=== PATIENT | male | born 1990 | race Two or more races ===

== ENCOUNTER 2021-01-11 14:19 | Emergency (ER) | payer SELFPAY ==
[~2021-01-11] VITALS: Ht 172.7 cm; Wt 105.0 kg
[2021-01-11 14:30] VITALS: BP 120/65
--- NOTE | 2021-01-11 14:40 | PHYS DOC ---
General Adult EDM: Chief Complaint: LACERATION/AVULSION HPI: HPI: Patient is a 30-year-old male who presents to the ER for a laceration to his left hand and forearm. Patient reports that he cut his hand on glass. Patient has a 3 cm laceration to the dorsal aspect of his hand and a wound to his left forearm. Patient denies any decreased sensation or decreased range of motion to extremity. Patient states that his tetanus shot is up-to-date. (HOLLIE FARLEY APRN) Review of Systems: Review of Systems: 14 body systems of the review of systems have been reviewed. See HPI for pertinent positive and negative responses, otherwise all other systems are negative, nonpertinent or noncontributory (HOLLIE FARLEY APRN) Physical Exam: PE: Constitutional: Well developed, well nourished, no acute distress, non-toxic appearance. [] HENT: Normocephalic, atraumatic Eyes: PERRL, EOMI, conjunctiva normal, no discharge. [] Neck: Normal range of motion, no stridor Cardiovascular: Normal peripheral perfusion Lungs & Thorax: Normal work of breathing, no tachypnea Abdomen: Bowel sounds normal, soft, no tenderness, no masses, no pulsatile masses. [] Skin: Warm, dry, no erythema, no rash, 3 cm L-shaped laceration of the dorsal aspect of patient's left hand, no tendon involvement, no visible foreign body. 4 cm wound noted to left forearm, no states that patient shaved off the layer of his skin, this wound is not suturable. Good range of motion and neuro intact to left hand. Back: Normal range of motion Extremities: No tenderness, no cyanosis, no clubbing, ROM intact, no edema. [] Neurologic: Alert and oriented X 3, normal motor function, normal sensory function, no focal deficits noted. [] Psychologic: Affect normal, judgement normal, mood normal. [] (HOLLIE FARLEY APRN) EKG: EKG: [] (HOLLIE FARLEY APRN) Radiology/Procedures: Radiology/Procedures: PROCEDURE: HAND LEFT 3V EXAM: Right hand, 3 views. HISTORY: Laceration. COMPARISON: None. FINDINGS: 3 views of the left hand are obtained. There is no fracture, dislocation or subluxation. There is no evidence foreign body. IMPRESSION: No acute osseous finding. Electronically signed by: Adelita Adamson MD (01/11/2021 3:05 PM) [id number] DICTATED AND SIGNED BY: ADELITA ADAMSON MD DATE: 01/11/21 1504 CC: EMERGENCY,DEPARTMENT; HOLLIE FARLEY APRN; PCP,NO ~MTH0 0[] (HOLLIE FARLEY APRN) Heart Score: C/O Chest Pain: No Risk Factors: Risk Factors: DM, Current or recent (<one month) smoker, HTN, HLP, family history of CAD, obesity. Risk Scores: Score 0 - 3: 2.5% MACE over next 6 weeks - Discharge Home Score 4 - 6: 20.3% MACE over next 6 weeks - Admit for Clinical Observation Score 7 - 10: 72.7% MACE over next 6 weeks - Early Invasive Strategies (HOLLIE FARLEY APRN) Course & Med Decision Making: Course & Med Decision Making Pertinent Labs and Imaging studies reviewed. (See chart for details) Patient is a 30-year-old male being seen for a laceration to his left hand and forearm. An x-ray was performed to rule out fracture or foreign body retainment. No tendon involvement. Full range of motion of the hand and fingers. This was negative for any acute findings.. Patient's wound cleansed with saline and chlorhexidine. Laceration to dorsal aspect of hand was repaired with sutures. Neuro intact pre and post suture placement. Patient's wound to his left forearm is not suturable as he shaved off a layer of skin. This wound was cleansed and a nonadherent dressing was placed. Patient given first dose of antibiotic in the ER and discharged home with a prescription for antibiotic. Patient given education regarding wound care and suture removal care. I discussed with patient all findings and diagnostic testing as well as the need to follow-up with PCP for further evaluation and treatment or return to the ER if any new or worsening symptoms. Strict return precautions were also discussed at length. Patient voiced understanding and agreement with the plan. Patient is hemodynamically stable at the time of disposition. (HOLLIE FARLEY APRN) Course & Med Decision Making I was the Attending physician on the above date of service of this patient. This patient was evaluated, examined, treated, and dispositioned from the emergency department by the mid-level practitioner. Although I was working at the time , no assistance was requested. Electronically signed, Jody Wallace DO (JODY WALLACE DO) Kiel Disclaimer: Kiel Disclaimer: This electronic medical record was generated, in whole or in part, using a voice recognition dictation system. (HOLLIE FARLEY APRN) Laceration Repair Lac Repair Time: 1529 Confirmed: Patient, procedure, site, and site correct Consent: Patient has given verbal consent Laceration location: Dorsal aspect of left hand Shape: L-shaped Depth: Superficial Details: Clean with no foreign material Neurovascular, tendon exam: Intact Anesthesia: 1% lidocaine Preparation: Sterile field established Irrigation: Wound irrigated with chlorhexidine and saline saline Debridement: Skin closure: Simple interrupted sutures placed Size of suture: 5-0 Ethilon Number of sutures: 6 Complexity: Single layer Post procedure exam: Circulation, motor, sensory exam intact, bleeding controlled. Complications: None Patient tolerated: Well Performed by: self Total time: 30 minutes (HOLLIE FARLEY APRN) Departure Departure: Impression: Primary Impression: Laceration Disposition: HOME / SELF CARE / HOMELESS Condition: GOOD Referrals: PCP,RADHA (PCP) Patient Instructions: Laceration Care, Adult Additional Instructions: You are seen in the ER for a laceration to your left hand and forearm. An x-ray was performed to rule out fracture or foreign body and it was negative. The laceration on the top of your hand was repaired with sutures. You will need to have the sutures removed in 7 to 10 days. Please do not submerge your hand in any water for 48 hours. You can keep the laceration clean with mild soap and warm water. Monitor for any signs of infection including redness, warmth, swelling, drainage. The skin tear on your left forearm could not be repaired with sutures. Because this wound was not able to be repaired with sutures, I am sending you home with an antibiotic. You are given the first dose in the ER. Please keep this clean and dry. You can apply Polysporin/bacitracin to both wounds and keep nonadherent dressing on. Please follow-up with your primary ca re provider or return to the ER to have the sutures removed. You can take Tylenol/ibuprofen for pain at home. If you develop any signs of infection, decreased range of motion, decreased sensation to hand or increased pain please return to the ER immediately. EMERGENCY DEPARTMENT GENERAL DISCHARGE INSTRUCTIONS Thank you for coming to [facility] (ED) today and trusting us with you care. We trust that you had a positivie experience in our Emergency Department. If you wish to speak to the department management, you may call the director at [phone]. YOUR FOLLOW UP INSTRUCTIONS ARE FOLLOWS: 1. Do you have a private Doctor? If you do not have a private doctor, please ask for a resource list of physicians or clinics that may be able to assist you with follow up care. 2. The Emergency Physician has interpreted your x-rays. The X-Ray specialist will also review them. If there is a change in the findings, you will be notified in 48 hours when at all possible. 3. A lab test or culture has been done, your results will be reviewed and you will be notified if you need a change in treatment. ADDITIONAL INSTRUCTIONS AND INFORMATION: 1. Your care today has been supervised by a physician who is specially trained in emergency care. Many problems require more than one evaluation for a complete diagnosis and treatment. We recommend that you schedule your follow up appointment as recommended to ensure complete treatment of you illness or injury. If you are unable to obtain follow up care and continue to have a problem, or if your condition worsens, we recommend that you return to the ED. 2. We are not able to safely determine your condition over the phone nor are we able to give sound medical advice over the phone. For these safety reasons, if you call for medical advice we will ask you to come to the ED for further evaluation. 3. If you have any questions regarding these discharge instructions please call the ED at [phone]. SAFETY INFORMATION: In the interest of safety, wellness, and injury prevention; we encourage you to wear your sealbelt, if you smoke; quite smoking, and we encourage family to use a protective helmet for bicycling and other sporting events that present an increased risk for head injury. IF YOUR SYMPTOMS WORSEN OR NEW SYMPTOMS DEVELOP, OR YOU HAVE CONCERNS ABOUT YOUR CONDITION; OR IF YOUR CONDITION WORSENS WHILE YOU ARE WAITING FOR YOUR FOLLOW UP APPOINTMENT; EITHER CONTACT YOUR PRIMARY CARE DOCTOR, THE PHYSICIAN WHOSE NAME AND NUMBER YOU WERE GIVEN, OR RETURN TO THE ED IMMEDIATELY. Scripts Cephalexin (CEPHALEXIN) 500 Mg Tablet 1 TAB PO QID for skin infection for 5 Days, #20 TAB 0 Refills Prov: HOLLIE FARLEY APRN 01/11/21 HOLLIE FARLEY APRN Jan 11, 2021 14:40 JODY WALLACE DO Jan 13, 2021 14:17
[2021-01-11] MEDS ORDERED: LIDOCAINE 1% Multi-Dose 20 ML VIAL. IJ ONE (14:45)
[2021-01-11] MEDS ORDERED: CEPHALEXIN 250 MG CAPSULE PO ONE (14:45)
--- NOTE | 2021-01-11 15:07 | RAD ---
EXAM: Right hand, 3 views. HISTORY: Laceration. COMPARISON: None. FINDINGS: 3 views of the left hand are obtained. There is no fracture, dislocation or subluxation. Th ere is no evidence foreign body. IMPRESSION: No acute osseous finding. Electronically signed by: Adelita Rainey MD (01/11/2021 3:05 PM) [id number]
[2021-01-11] MEDS ORDERED: CEPH500T PO (15:59)
== END 2021-01-11 16:12 | disposition home or self-care (01) ==
LOC: ER 14:19
DX: S61.412A Laceration without foreign body of left hand, initial encounter (principal); S51.812A Laceration without foreign body of left forearm, initial encounter; W25.XXXA Contact with sharp glass, initial encounter; Y93.89 Activity, other specified; Y92.89 Other specified places as the place of occurrence of the external cause; Y99.8 Other external cause status
CPT/HCPCS: 12002; 73130; 99283

== ENCOUNTER 2021-01-14 16:57 | Emergency (ER) | payer SELFPAY ==
[~2021-01-14] VITALS: Ht 172.7 cm; Wt 107.4 kg
[~2021-01-14 16:57] MED LIST: CEPH500T PO
[2021-01-14] MEDS ORDERED: SULF1TAB24 PO (17:25)
--- NOTE | 2021-01-14 17:25 | PHYS DOC ---
Past History Past Surgical History: No Surgical History (HOLLIE FARLEY APRN) Alcohol Use: None (HOLLIE FARLEY APRN) General Adult EDM: Chief Complaint: WOUND CHECK HPI: HPI: Patient is a 30-year-old male who presents to the ER for redness and drainage from the suture site. Patient had sutures placed to his left hand on January 11. Patient was discharged with Keflex. He states that he has been taking his antibiotic as directed. Patient denies any fevers or any changes in neurovascular status. (HOLLIE FARLEY APRN) Review of Systems: Review of Systems: 14 body systems of the review of systems have been reviewed. See HPI for pertinent positive and negative responses, otherwise all other systems are negative, nonpertinent or noncontributory (HOLLIE FARLEY APRN) Allergies: Allergies: Allergies Coded Allergies Type Severity Reaction Last Updated Verified No Known Drug Allergies 01/14/21 No (HOLLIE FARLEY APRN) Physical Exam: PE: Constitutional: Well developed, well nourished, no acute distress, non-toxic appearance. [] HENT: Normocephalic, atraumatic Eyes: PERRL, EOMI, conjunctiva normal, no discharge. [] Neck: Normal range of motion, no stridor Cardiovascular: Normal peripheral perfusion Lungs & Thorax: Normal work of breathing, no tachypnea Skin: Warm, dry, no rash, patient has abrasion noted to left forearm that is without any signs of infection Back: Normal range of motion Extremities: No tenderness, no cyanosis, no clubbing, ROM intact, no edema. Left hand: Mild swelling noted to left hand, laceration wounds are well approximated and sutures are still intact, mild redness surrounding the laceration site, small amount of purulent drainage from laceration site, neurovascularly intact, range of motion intact. Neurologic: Alert and oriented X 3, normal motor function, normal sensory function, no focal deficits noted. [] Psychologic: Affect normal, judgement normal, mood normal. [] (HOLLIE FARLEY APRN) Current Patient Data: Vital Signs: Vital Signs Date Time Temp Pulse Resp B/P (MAP) Pulse Ox O2 Delivery O2 Flow Rate FiO2 01/14/21 17:00 97.5 60 18 112/65 99 Room Air (HOLLIE FARLYE APRN) EKG: EKG: [] (HOLLIE FARLEY APRN) Radiology/Procedures: Radiology/Procedures: [] (HOLLIE FARLEY APRN) Heart Score: C/O Chest Pain: No Risk Factors: Risk Factors: DM, Current or recent (<one month) smoker, HTN, HLP, family history of CAD, obesity. Risk Scores: Score 0 - 3: 2.5% MACE over next 6 weeks - Discharge Home Score 4 - 6: 20.3% MACE over next 6 weeks - Admit for Clinical Observation Score 7 - 10: 72.7% MACE over next 6 weeks - Early Invasive Strategies (HOLLIE FARLEY APRN) Course & Med Decision Making: Course & Med Decision Making Pertinent Labs and Imaging studies reviewed. (See chart for details) Patient is a 30-year-old male being seen in the ER for redness, swelling and purulent drainage from suture site to dorsal aspect of left hand. Patient was treated with Keflex when he was seen for the laceration repair. He states that he is taking them as directed. He states that he is also applying Polysporin to the wound and keeping it bandaged. Patient will be discharged home with Bactrim. He is advised to continue to place Polysporin or bacitracin ointment on the wound and keep it dressed. Patient advised to follow-up with his primary care provider or return to the ER for a wound check in 48 hours. I discussed with patient all findings as well as the need to follow-up with PCP for further evaluation and treatment or return to the ER if any new or worsening symptoms. Strict return precautions were also discussed at length. Patient voiced unde rstanding and agreement with the plan. Patient is hemodynamically stable at the time of disposition. (HOLLIE FARLEY APRN) Course & Med Decision Making I was the Attending physician on the above date of service of this patient. This patient was evaluated, examined, treated, and dispositioned from the emergency department by the mid-level practitioner. Although I was working at the time , no assistance was requested. Electronically signed, Jody Wallace DO (JODY WALLACE DO) Kiel Disclaimer: Kiel Disclaimer: This electronic medical record was generated, in whole or in part, using a voice recognition dictation system. (HOLLIE FARLEY APRN) Departure Departure: Impression: Primary Impression: Encounter for wound re-check Disposition: HOME / SELF CARE / HOMELESS Condition: GOOD Referrals: PCP,NO (PCP) Patient Instructions: Wound Check Additional Instructions: You were seen in the ER for wound check. Laceration is well approximated and the sutures are still intact. It appears that you have a skin infection. Please discontinue taking the Keflex that you are previously prescribed and start taking the new antibiotic. Make sure you start and finish this antibiotic completely. Please continue to apply Polysporin or bacitracin to your wounds and keep a dressing in place. If you develop worsening of your infection such as increased redness, warmth, swelling, drainage, increased pain, high fevers refractory to treatment, decreased sensation in your extremity you should return to the ER immediately. You need to follow-up with your primary care provider or return to the ER in 48 hours for a wound recheck. EMERGENCY DEPARTMENT GENERAL DISCHARGE INSTRUCTIONS Thank you for coming to [facility] (ED) today and trusting us with you care. We trust that you had a positivie experience in our Emergency Department. If you wish to speak to the department management, you may call the director at [phone]. YOUR FOLLOW UP INSTRUCTIONS ARE FOLLOWS: 1. Do you have a private Doctor? If you do not have a private doctor, please ask for a resource list of physicians or clinics that may be able to assist you with follow up care. 2. The Emergency Physician has interpreted your x-rays. The X-Ray specialist will also review them. If there is a change in the findings, you will be notified in 48 hours when at all possible. 3. A lab test or culture has been done, your results will be reviewed and you will be notified if you need a change in treatment. ADDITIONAL INSTRUCTIONS AND INFORMATION: 1. Your care today has been supervised by a physician who is specially trained in emergency care. Many problems require more than one evaluation for a complete diagnosis and treatment. We recommend that you schedule your follow up appointment as recommended to ensure complete treatment of you illness or injury. If you are unable to obtain follow up care and continue to have a problem, or if your condition worsens, we recommend that you return to the ED. 2. We are not able to safely determine your condition over the phone nor are we able to give sound medical advice over the phone. For these safety reasons, if you call for medical advice we will ask you to come to the ED for further evaluation. 3. If you have any questions regarding these discharge instructions please call the ED at [phone]. SAFETY INFORMATION: In the interest of safety, wellness, and injury prevention; we encourage you to wear your sealbelt, if you smoke; quite smoking, and we encourage family to use a protective helmet for bicycling and other sporting events that present an increased risk for head injury. IF YOUR SYMPTOMS WORSEN OR NEW SYMPTOMS DEVELOP, OR YOU HAVE CONCERNS ABOUT YOUR CONDITION; OR IF YOUR CONDITION WORSENS WHILE YOU ARE WAITING FOR YOUR FOLLOW UP APPOINTMENT; EITHER CONTACT YOUR PRIMARY CARE DOCTOR, THE PHYSICIAN WHOSE NAME AND NUMBER YOU WERE GIVEN, OR RETURN TO THE ED IMMEDIATELY. Scripts Sulfamethoxazole/Trimethoprim (BACTRIM DS TABLET) 1 Each Tablet 1 TAB PO BID for skin infection for 7 Days, #14 TAB 0 Refills Prov: HOLLIE FARLEY APRN 01/14/21 HOLLIE FARLEY APRN Jan 14, 2021 17:25 JODY WALLACE DO Jan 15, 2021 06:16
[2021-01-14 17:38] VITALS: BP 110/61
== END 2021-01-14 17:41 | disposition home or self-care (01) ==
LOC: ER 16:57
DX: S61.412D Laceration without foreign body of left hand, subsequent encounter (principal); X58.XXXD Exposure to other specified factors, subsequent encounter
CPT/HCPCS: 99283